=== PATIENT | female | born 1940 | race Two or more races ===

== ENCOUNTER 2018-05-09 14:21 | Outpatient (CLI) | payer MEDICARE, MEDICAID ==
[~2018-05-09] VITALS: Ht 170.2 cm; Wt 76.2 kg
[2018-05-09 14:00] VITALS: BP 147/46
[~2018-05-09 14:21] MED LIST: ASPIRIN81 M1 PO; CLONAZEPAM1 MG PO; EDARBI40 MG PO; FISH OIL300 MG PO; LIPITOR40 MG PO; NORTRIPTYLINE H10 MG PO; TOPROL XL200 MG PO
[2018-05-09] MEDS ORDERED: FOLIC ACID1 MG ORAL (16:14)
[2018-05-09] MEDS ORDERED: DONEPEZIL HCL10 M2 ORAL (16:14)
[2018-05-09] MEDS ORDERED: FLUOXETINE HCL40 MG ORAL (16:14)
[2018-05-09] MEDS ORDERED: LOSARTAN-HCTZ1 EACH ORAL (16:14)
[2018-05-09] MEDS ORDERED: NAMENDA10 MG ORAL (16:14)
[2018-05-09] MEDS ORDERED: XANAX1 MG ORAL (16:14)
[2018-05-09] MEDS ORDERED: PROPRANOLOL HCL20 MG ORAL (16:14)
[2018-05-09] MEDS ORDERED: PRAVASTATIN SOD20 M1 ORAL (16:14)
[2018-05-09] MEDS ORDERED: BUPROPION XL150 MG ORAL (16:14)
[2018-05-09] MEDS ORDERED: VITAMIN D2400 UNI1 PO (16:14)
[2018-05-09] MEDS ORDERED: AMLODIPINE BESYL5 MG ORAL (16:14)
--- NOTE | 2018-05-09 22:45 | Consultation ---
DATE OF CONSULTATION: 05/09/2018 CONSULTING PHYSICIAN: Ricky Romero M.D. REFERRING PHYSICIAN: Dr. Glasgow. CHIEF COMPLAINT: Colonic polyps. HISTORY OF PRESENT ILLNESS: This is a very pleasant 77-year-old female, who was referred to us by Dr. Glasgow. The patient apparently had endoscopy and colonoscopy in the surgical center in [place]. She had evidence of ulcerations and multiple polyps. Large polyps were not resected given the risk of bleeding at the surgical center. The patient was referred to us for colonoscopy and endoscopy. PAST MEDICAL HISTORY: History of colon cancer in 1999, status post surgery and chemotherapy, hypertension, and depression. PAST SURGICAL HISTORY: Breast lump removal and partial colectomy. MEDICATIONS: Please see medication reconciliation list. ALLERGIES: No known drug allergies. FAMILY HISTORY: Noncontributory. SOCIAL HISTORY: The patient denies any tobacco, alcohol, or illicit drug use. REVIEW OF SYSTEMS: A 10-point review of systems was performed and pertinent positives in HPI. PHYSICAL EXAMINATION: VITAL SIGNS: Temperature 98.6, blood pressure 147/46, pulse 96, and respirations 20. HEENT: Normocephalic and atraumatic. Sclerae are anicteric. NECK: Supple. No obvious evidence of lymphadenopathy. CARDIOVASCULAR: Regular rate and rhythm. Plus S1 and S2. No obvious murmur. LUNGS: Clear to auscultation bilaterally. ABDOMEN: Positive bowel sounds. Soft and nontender. No rebound. No guarding. No peritoneal sign. EXTREMITIES: No cyanosis. No clubbing. No edema. ASSESSMENT AND PLAN: This is a 77-year-old female with history of colon cancer and multiple polyps. Big ones had not been resected, so we will plan to do colonoscopy. The patient also has history of peptic ulceration on the last endoscopy. Family want a repeat endoscopy to make sure that the ulcer is healed. Therefore, we are going to plan to do endoscopy and colonoscopy next week. The patient was given prep instruction for the colonoscopy diet and we will schedule for next Sunday. I want to thank Dr. Glasgow for this kind referral. Ricky Romero M.D. DR: CHAY JOB#: [id number] CC: Dr. Glasgow
== END 2018-05-09 14:51 | disposition home or self-care (01) ==
LOC: PAN 14:21
DX: K63.5 Polyp of colon (principal); I10 Essential (primary) hypertension; F32.9 Major depressive disorder, single episode, unspecified; K27.9 Peptic ulcer, site unspecified, unspecified as acute or chronic, without hemorrhage or perforation
CPT/HCPCS: 99202

== ENCOUNTER 2018-05-15 08:06 | Day surgery (SDC) | payer MEDICARE, MEDICAID ==
[2018-05-15] VITALS (10 sets, daily range): BP systolic 119–151; BP diastolic 56–66
[~2018-05-15] VITALS: Ht 170.2 cm; Wt 72.6 kg
[~2018-05-15 08:06] MED LIST changes: +AMLODIPINE BESYL5 MG ORAL; +BUPROPION XL150 MG ORAL; +DONEPEZIL HCL10 M2 ORAL; +FLUOXETINE HCL40 MG ORAL; +FOLIC ACID1 MG ORAL; +LOSARTAN-HCTZ1 EACH ORAL; +NAMENDA10 MG ORAL; +PRAVASTATIN SOD20 M1 ORAL; +PROPRANOLOL HCL20 MG ORAL; +VITAMIN D2400 UNI1 PO; +XANAX1 MG ORAL
[2018-05-15] MEDS ORDERED: Atropine Inj 1mg/10ml Syr IV PRN (09:00)
[2018-05-15] MEDS ORDERED: fentaNYL 100 mcg/2 mL IV PRN (09:00)
[2018-05-15] MEDS ORDERED: DiphenhydrAMINE 50mg/ml Inj IVP PRN (09:00)
[2018-05-15] MEDS ORDERED: Midazolam 2mg/2ml Inj IVP PRN (09:00)
--- NOTE | 2018-05-15 09:02 | Anethesia Preoperative Eval ---
Anesthesia Pre-op PMH/ROS General Date of Evaluation: May 15, 2018 Time of Evaluation: 08:50 Anesthesiologist: leon ASA Score: ASA 4 Mallampati Score Class I : Soft palate, uvula, fauces, pillars visible Class II: Soft palate, uvula, fauces visible Class III: Soft palate, base of uvula visible Class IV: Only hard plate visible Mallampati Classification: Class II Surgeon: vannesa Diagnosis: peptic ulcer, hx/o colon polyps Surgical Procedure: egd/colonoscopy Anesthesia History: none Social History: smoking - former smoker Family History: no anesthesia problems Allergies: Coded Allergies: No Known Allergies (Unverified , 05/15/18) Medications: see eMAR Patient NPO?: Yes Past Medical History Cardiovascular: Reports: HTN, other - hyperchol Gastrointestinal/Genitourinary: Reports: other - colorectal cancer Neurologic/Psychiatric: Reports: depression/anxiety Anesthesia Pre-op Phys. Exam Physician Exam Last Vital Signs Date Time Temp Pulse Resp B/P (MAP) Pulse Ox O2 Delivery O2 Flow Rate FiO2 05/15/18 08:40 Room Air 05/15/18 08:31 97.0 55 18 151/56 97 Constitutional: NAD Neurologic: CN 2-12 intact Cardiovascular: other - bradycardia Respiratory: CTA Gastrointestinal: S/NT/ND Airway Exam Mallampati Score: Class II MO: limited Neck: flexible TMD: 2fb ROM: limited Anesthesia Pre-op A/P Studies Pre-op Studies: EKG - sinus bradycardia Risk Assessment & Plan Assessment: asa4 Plan: mac Status Change Before Surgery: No Pre-Antibiotics Drug: Rosalinda Snell MD May 15, 2018 09:02
--- NOTE | 2018-05-15 09:16 | Pre-Procedure Note/Attestation ---
Pre-Procedure Note/Attestation Complete Prior to Procedure Planned Procedure: not applicable Procedure Narrative: esophagogastroduodenoscopy and colonoscopoy Indications for Procedure Pre-Operative Diagnosis: screening colon, GERD Attestation I attest that I discussed the nature of the procedure; its benefits; risks and complications; and alternatives (and the risks and benefits of such alternatives ), prior to the procedure, with the patient (or the patient's legal distribution sales representative). I attest that, if there was a reasonable possibility of needing a blood transfusion, the patient (or the patient's legal distribution sales representative) was given the [facility] standardized written summary, pursuant to the Vamshi Danii Blood Safety Act ([place] Health and Safety Code # 1645, as amended). I attest that I re-evaluated the patient just prior to the surgery and that there has been no change in the patient's H&P, except as documented below: Ricky Romero MD May 15, 2018 09:16
--- NOTE | 2018-05-15 09:16 | Short Stay Surgery H&P ---
History of Present Illness History of Present Illness Chief Complaint see recent office note HPI Hector Aldrich is a 77 year old female who was admitted on for Peptic Ulcer, History Of Colon Polyps Patient History Allergies: Coded Allergies: No Known Allergies (Unverified , 05/15/18) Medication History Scheduled Alprazolam* (Xanax*), 1 TAB ORAL DAILY, (Reported) Amlodipine Besylate* (Amlodipine Besylate*), 5 MG ORAL DAILY, (Reported) Bupropion Xl* (Bupropion Xl*), 150 MG ORAL Q24H, (Reported) Donepezil Hcl* (Donepezil Hcl*), 10 MG ORAL DAILY, (Reported) Ergocalciferol (Vitamin D2) (Vitamin D2), 1.25 GM PO QWEEK, (Reported) Fluoxetine Hcl* (Fluoxetine Hcl*), 40 MG ORAL DAILY, (Reported) Folic Acid* (Folic Acid*), 1 MG ORAL DAILY, (Reported) Losartan/Hydrochlorothiazide (Losartan-Hctz 100-12.5 Mg Tab), 1 TAB ORAL DAILY, (Reported) Memantine Hcl* (Namenda*), 10 MG ORAL DAILY, (Reported) Pravastatin Sod* (Pravastatin Sod*), 20 MG ORAL BEDTIME, (Reported) Propranolol Hcl* (Inderal*), Unknown Dose ORAL BID, (Reported) Discontinued Medications Aspirin (Aspirin), 81 MG PO DAILY, (Reported) Discontinued Reason: MD discontinued med Atorvastatin Calcium* (Lipitor*), 40 MG PO, (Reported) Discontinued Reason: MD discontinued med Azilsartan Medoxomil (Edarbi), 40 MG PO, (Reported) Discontinued Reason: MD discontinued med Clonazepam (Clonazepam), 1 MG PO, (Reported) Discontinued Reason: MD discontinued med Metoprolol Succinate (Toprol Xl), 200 MG PO, (Reported) Discontinued Reason: MD discontinued med Nortriptyline Hcl (Nortriptyline Hcl), 10 MG PO, (Reported) Discontinued Reason: MD discontinued med [place]-3 Fatty Acids (Fish Oil), 300 MG PO, (Reported) Discontinued Reason: MD discontinued med Physical Exam Vital Signs Last Vital Signs Date Time Temp Pulse Resp B/P (MAP) Pulse Ox O2 Delivery O2 Flow Rate FiO2 05/15/18 08:40 Room Air 05/15/18 08:31 97.0 55 18 151/56 97 Plan Attestation Are the patient's medical conditions optimized for surgery? Ricky Romero MD May 15, 2018 09:16
[2018-05-15] MEDS ORDERED: Propofol 200mg/20ml IV ONE (10:00)
[2018-05-15] MEDS ORDERED: Lidocaine 1% MPF 10mg/ml 5ml ONE (10:00)
[2018-05-15] MEDS ORDERED: Atropine Sulfate 0.4mg/ml inj ONE (10:00)
--- NOTE | 2018-05-15 10:30 | Endoscopy Procedure Note ---
Endoscopy Procedure Note General Indication for Procedure: h/o colon polyps, Procedures Performed: EGD, colonoscopy Operative Findings/Diagnosis: gastritis, 5 colon polyps Specimen: yes Pt Tolerated Procedure Well: Yes Estimated Blood Loss: none Anesthesia Anesthesiologist: leon Anesthesia: MAC Inserted Devices Implant(s) used?: No Quality Quality of Bowel Preparation: Good Did scope reach the cecum?: Yes Was there any complications?: No GI Core Measures 50 yrs or older w/o bx or poly: No 10yrs. F/U not recommended: Yes If not recommended, why?: Above average risk 10 yrs. F/U needed: Yes 18 years or older w/prev. colo: Yes <3yrs. since last colonoscopy: Yes Med reason:<3 yrs.: Incomplete Colonoscopy Ricky Romero MD May 15, 2018 10:30
--- NOTE | 2018-05-15 11:24 | Immediate Post-Op Evaluation ---
Immediate Post-Op Evalulation Immediate Post-Op Evalulation Procedure: egd/colonscopy/bx Date of Evaluation: May 15, 2018 Time of Evaluation: 10:50 IV Fluids: 400ml 0.9ns Blood Products: none Estimated Blood Loss: negligible Blood Pressure Systolic: 117 Blood Pressure Diastolic: 65 Pulse Rate: 59 Respiratory Rate: 18 O2 Sat by Pulse Oximetry: 100 Temperature (Fahrenheit): 97.2 Pain Score (1-10): 0 Nausea: No Vomiting: No Complications none Patient Status: awake, reacts, patent Hydration Status: adequate Drug: Rosalinda Snell MD May 15, 2018 11:24
--- NOTE | 2018-05-15 11:26 | 48 Hour Post Anesthesia Eval ---
Post Anesthesia Evaluation Procedure: egd/colonscopy/bx Date of Evaluation: May 15, 2018 Time of Evaluation: 10:52 Blood Pressure Systolic: 134 0: 57 Pulse Rate: 51 Respiratory Rate: 18 Temperature (Fahrenheit): 97.2 O2 Sat by Pulse Oximetry: 100 Nausea: No Vomiting: No Pain Intensity: 0 Hydration Status: adequate Cardiopulmonary Status: stable Mental Status/LOC: patient returned to baseline Post-Anesthesia Complications: none Follow-up care needed: N/A Rosalinda Gupta MD May 15, 2018 11:26
--- NOTE | 2018-05-15 15:30 | Procedure Note ---
DATE OF PROCEDURE: 05/15/2018 SURGEON: Ricky Romero M.D. PROCEDURE: Upper endoscopy with biopsy and colonoscopy with biopsy and polypectomy. ANESTHESIA: Per Dr. Alexandra. INSTRUMENT: Olympus upper endoscope and colonoscope. INDICATION: History of gastric ulceration, history of colonic polyps. REASON FOR PROCEDURE: The procedure, risks, benefits, and possible consequences, including hemorrhage, aspiration, perforation and infection, and alternative treatments, were explained to the patient/legal guardian by Dr. Ricky Romero and the patient/legal guardian understood and accepted these risks. DESCRIPTION OF PROCEDURE: After informed consent was obtained, the patient was adequately sedated, Olympus upper endoscope was advanced from the mouth to the second portion of the duodenum and retroflexion performed in the stomach. The patient had diffuse gastritis. Random biopsy from antrum and body was obtained to rule out H. pylori infection. There was no evidence of any ulceration at this time. At this time, the upper endoscope was retrieved and the patient was turned over for colonoscopy. First, rectal exam was performed showed positive for internal hemorrhoids. Then, the scope was advanced from rectum into the cecum. Quality of prep was good throughout the colon except for the cecum. Cecum unfortunately was covered with brownish solid stool, so we could not examine the cecum completely. We saw 2 tattoos, 1 in the ascending colon, 1 in the proximal transverse colon. There were 2 polyps in this area. One of them was pedunculated measured roughly about 8 mm, removed with hot snare polypectomy. This was in ascending colon. There was 1 at the hepatic flexure area. This one was little bit bigger, may be about a cm. This one was sessile, removed with hot snare polypectomy in 2 pieces. The patient also had 3 other small polyps, 1 in the ascending colon, 2 in transverse, all the 3 removed with the cold biopsy forceps technique. The rest of the colonic examination grossly within normal limits. Retroflexion of rectum showed evidence of medium-sized nonbleeding internal hemorrhoids. SUMMARY OF FINDINGS: 1. Gastritis, status post biopsy. 2. Total of 5 colonic polyps removed, see above for detail. 3. Internal hemorrhoids. RECOMMENDATIONS: Follow up pathology and treat accordingly. Given 5 polyps, we will recommend colonoscopy no later than 3 years. I want to thank, Dr. Glasgow, for this kind referral. Ricky Romero M.D. DR: JEMIMA JOB#: [id number] CC: Lazara Glasgow M.D.
--- NOTE | 2018-05-15 17:15 | Cardiology Report ---
APPROVED REPORT EKG Measurement Heart [id number] MS [id number] Sinus bradycardia Otherwise normal ECG
== END 2018-05-15 11:50 | disposition home or self-care (01) ==
LOC: GAS 08:06
DX: Z86.010 Personal history of colon polyps (principal); D12.2 Benign neoplasm of ascending colon; D12.3 Benign neoplasm of transverse colon; K64.8 Other hemorrhoids; Z85.038 Personal history of other malignant neoplasm of large intestine; K29.50 Unspecified chronic gastritis without bleeding; K31.9 Disease of stomach and duodenum, unspecified; Z87.11 Personal history of peptic ulcer disease; I10 Essential (primary) hypertension; E78.00 Pure hypercholesterolemia, unspecified; F32.9 Major depressive disorder, single episode, unspecified; F41.9 Anxiety disorder, unspecified; R00.1 Bradycardia, unspecified; Z87.891 Personal history of nicotine dependence
CPT/HCPCS: 43239; 45380; 45385; 93005; J0461; J2704; 94003; 94150